=== PATIENT | female | born 1990 | race Hispanic/Latino ===

== ENCOUNTER 2021-09-07 13:58 | Inpatient (IN) | payer BC ==
[2021-09-07] MEDS ORDERED: HYDROcodone/Acetaminophen 5/325 mg Tablet PO PRN ×2 (14:52)
[2021-09-07] MEDS ORDERED: Misoprostol 200 MCG TAB PR PRN (14:52)
[2021-09-07] MEDS ORDERED: Butorphanol Tartrate 1 MG/ML VIAL SLOW IVP PRN (14:52)
[2021-09-07] MEDS ORDERED: Promethazine HCl 25 MG/ML VIAL IM PRN (14:52)
[2021-09-07] MEDS ORDERED: Lidocaine 1% (PF) 30 ML VIAL SC PRN (14:52)
[2021-09-07] MEDS ORDERED: hydrALAZINE 20 MG/ML VIAL SLOW IVP PRN ×2 (14:52→17:31)
[2021-09-07] MEDS ORDERED: Carboprost 250 MCG/ML AMP IM PRN (14:52)
[2021-09-07] MEDS ORDERED: Ondansetron PF 4 MG/2 ML Vial IVP PRN (14:52)
[2021-09-07] MEDS ORDERED: Ibuprofen 800 MG TAB PO PRN (14:52)
[2021-09-07] MEDS ORDERED: NS w/ Oxytocin 30 units 500 ML ONE (14:55)
[2021-09-07] MEDS ORDERED: NS w/ Oxytocin 30 units 500 ML IV SCH ×2 (15:00)
[2021-09-07 15:32] LABS: Mean Corpuscular HGB CONC 34.5 g/dL (32.0-36.0); Mean Corpuscular Hemoglobin 30.4 pg (27.0-33.0); Mean Corpuscular Volume 88.1 fl (81.6-98.3); Platelet Count 191 10x3/uL (150-450); RBC Distribution Width 14.6 % (11.5-14.5); Red Blood Cell (RBC) Count 3.95 10x6/uL (3.90-5.03); White Blood Cell (WBC) Count 9.2 10x3/uL (3.5-10.5)
[2021-09-07 15:49] LABS: ALT (SGPT) 36 U/L (8-55); AST (SGOT) 30 U/L (5-34); Albumin 3.1 g/dL (3.5-5.0); Alkaline Phosphatase 176 U/L (40-110); Anion Gap 12 mmol/L (10-20); BUN (Urea Nitrogen) 11 mg/dL (7.0-18.7); Bilirubin, Total 0.3 mg/dL (0.2-1.2); Calc. Creatinine Clearance 0 mL/min (70-130); Calcium 8.7 mg/dL (7.8-10.44); Carbon Dioxide 22 mmol/L (22-29); Chloride 112 mmol/L (98-107); Estimated GFR 113; Globulin 2.5 g/dL (2.4-3.5); Glucose 94 mg/dL (70-105); Potassium 4.1 mmol/L (3.5-5.1); Protein, Total 5.6 g/dL (6.0-8.3); Sodium 142 mmol/L (136-145)
[2021-09-07 16:17] LABS: Hep B Surf Ag Non-Reactive S/CO (NonReactive); Syphilis Antibody Nonreactive (Nonreactive); Syphilis Antibody Index 0.02 S/CO (<1.00 Non-Reactive)
[2021-09-07 16:48] LABS: HBSAg Index 0.19 S/CO (0-0.99)
[2021-09-07] MEDS ORDERED: hydrALAZINE 20 MG/ML VIAL ONE (17:01)
[2021-09-07 17:07] VITALS: BMI 39.9
[2021-09-07] MEDS ORDERED: Magnesium Sulfate 20 gm/500 ml 20 GM/500 ML BAG ONE (17:26)
[2021-09-07] MEDS ORDERED: Labetalol HCl 100 MG/20 ML VIAL SLOW IVP PRN ×2 (17:31)
[2021-09-07] MEDS ORDERED: Lorazepam 2 MG/ML VIAL SLOW IVP PRN (17:31)
[2021-09-07] MEDS ORDERED: Calcium Gluc 4.6 MEQ/10 ML (100 MG/ML) SLOW IVP PRN (17:31)
[2021-09-07] MEDS: Labetalol HCl 100 MG/20 ML VIAL SLOW IVP PRN (18:41)
[2021-09-07] MEDS: Lactated Ringer's 1,000 ML IV SCH (23:06)
[2021-09-07] MEDS: Acetaminophen 500 MG TAB PO PRN (23:09)
[2021-09-08] MEDS: Magnesium Sulfate 20 gm/500 ml 20 GM/500 ML BAG IVPB SCH ×3 (02:23→23:17)
[2021-09-08] MEDS: Lactated Ringer's 1,000 ML IV SCH (06:57)
[2021-09-08] MEDS: Acetaminophen 500 MG TAB PO PRN ×3 (07:07→19:38)
[2021-09-08] MEDS ORDERED: Labetalol HCl 100 MG/20 ML VIAL SLOW IVP PRN ×5 (09:09→19:39)
[2021-09-08] MEDS: Calcium Carbonate 500 MG ChewTAB PO SCH (13:34)
[2021-09-08] MEDS: Labetalol HCl 100 MG/20 ML VIAL SLOW IVP PRN (16:27)
[2021-09-08] MEDS ORDERED: NIFEdipine XL 30 MG TAB PO SCH (20:00)
[2021-09-08] MEDS ORDERED: Fentanyl 2 mcg/Bup 0.1% Cadd 100 ML ONE (22:12)
[2021-09-08] MEDS ORDERED: Promethazine HCl 25 MG/ML VIAL IM PRN (22:31)
[2021-09-08] MEDS ORDERED: Moisturizing Cream (Eucerin) 113 GM JAR TOP PRN (22:31)
[2021-09-08] MEDS ORDERED: Lactated Ringer's 500 ML IV PRN (22:31)
[2021-09-08] MEDS ORDERED: Ondansetron PF 4 MG/2 ML Vial IVP PRN (22:31)
[2021-09-08] MEDS ORDERED: Naloxone HCl 0.4 mg/ml Vial IVP PRN ×2 (22:31)
[2021-09-08] MEDS ORDERED: ePHEDrine Sulfate 50 MG/10 ML VIAL SLOW IVP PRN (22:31)
[2021-09-08] MEDS ORDERED: diphenhydrAMINE 50 MG/ML VIAL IVP PRN (22:31)
[2021-09-08] MEDS ORDERED: Acetaminophen 325 MG TAB PO PRN (22:31)
[2021-09-08] MEDS ORDERED: Communication Order-Pharmacy FS SCH (22:45)
[2021-09-08] MEDS ORDERED: Fentanyl 2 mcg/Bupivacaine 0.1% Cassette 100 ML EPIDURAL SCH (22:45)
[2021-09-09] MEDS ORDERED: Misoprostol 200 MCG TAB ONE (00:27)
[2021-09-09] MEDS ORDERED: Carboprost 250 MCG/ML AMP ONE (00:27)
[2021-09-09] MEDS ORDERED: Tranexamic Acid 1,000 MG/10 ML VIAL ONE (00:27)
[2021-09-09] MEDS ORDERED: Milk Of Magnesia 30 ML UDCUP PO PRN (01:04)
[2021-09-09] MEDS ORDERED: Calcium Gluc 4.6 MEQ/10 ML (100 MG/ML) SLOW IVP PRN (01:04)
[2021-09-09] MEDS ORDERED: hydrALAZINE 20 MG/ML VIAL SLOW IVP PRN (01:04)
[2021-09-09] MEDS ORDERED: Ondansetron PF 4 MG/2 ML Vial IVP PRN (01:04)
[2021-09-09] MEDS ORDERED: Lorazepam 2 MG/ML VIAL SLOW IVP PRN (01:04)
[2021-09-09] MEDS ORDERED: Bisacodyl 10 MG SUPP PR PRN (01:04)
[2021-09-09] MEDS ORDERED: Boostrix 0.5 ML (Tdap) VIAL IM ONE (01:04)
[2021-09-09 01:11] LABS: pH (Cord, venous) 7.249 (7.250-7.350)
[2021-09-09] MEDS: Ibuprofen 800 MG TAB PO SCH ×2 (04:55→15:51)
[2021-09-09 05:17] LABS: Hemoglobin 11.5 g/dL (12.0-15.5); Mean Corpuscular HGB CONC 33.2 g/dL (32.0-36.0); Mean Corpuscular Hemoglobin 29.5 pg (27.0-33.0); Mean Corpuscular Volume 88.7 fl (81.6-98.3); Mean Platelet Volume 10.9 fl (7.4-10.4); Platelet Count 172 10x3/uL (150-450); RBC Distribution Width 14.8 % (11.5-14.5); White Blood Cell (WBC) Count 23.3 10x3/uL (3.5-10.5)
[2021-09-09 05:51] LABS: ALT (SGPT) 29 U/L (8-55); AST (SGOT) 22 U/L (5-34); Albumin 2.8 g/dL (3.5-5.0); Alkaline Phosphatase 159 U/L (40-110); Anion Gap 12 mmol/L (10-20); BUN (Urea Nitrogen) 9 mg/dL (7.0-18.7); Bilirubin, Total 0.4 mg/dL (0.2-1.2); Calc. Creatinine Clearance 162 mL/min (70-130); Calcium 7.3 mg/dL (7.8-10.44); Carbon Dioxide 19 mmol/L (22-29); Chloride 104 mmol/L (98-107); Estimated GFR 104; Globulin 2.8 g/dL (2.4-3.5); Glucose 142 mg/dL (70-105); Potassium 3.8 mmol/L (3.5-5.1); Protein, Total 5.6 g/dL (6.0-8.3); Sodium 131 mmol/L (136-145)
[2021-09-09 06:26] LABS: MDiff Complete? YES
[2021-09-09 06:27] LABS: Platelet Morphology Comment Appears Adequate
[2021-09-09 06:29] LABS: Band 18 % (5-11); Lymphocytes 5 % (21-51); Monocytes 5 % (0-10); Neutrophil 72 % (42-75)
[2021-09-09] MEDS: Magnesium Sulfate 20 gm/500 ml 20 GM/500 ML BAG IVPB SCH ×2 (09:20→19:26)
[2021-09-09] MEDS: Docusate 100 MG CAP PO SCH (09:23)
[2021-09-09] MEDS: NIFEdipine XL 30 MG TAB PO SCH (09:23)
[2021-09-09] MEDS: Acetaminophen 500 MG TAB PO PRN (13:35)
[2021-09-10] MEDS: Ibuprofen 800 MG TAB PO SCH ×4 (02:15→21:39)
[2021-09-10] MEDS: Lactated Ringer's 1,000 ML IV SCH ×5 (02:15→21:53)
[2021-09-10] MEDS: Ferrous Sulfate 325 MG TAB PO SCH ×3 (02:15→17:27)
[2021-09-10] MEDS: Calcium Carbonate 500 MG ChewTAB PO SCH ×2 (02:15→13:40)
[2021-09-10] MEDS: Docusate 100 MG CAP PO SCH ×3 (02:16→21:39)
[2021-09-10] MEDS: NIFEdipine XL 30 MG TAB PO SCH (08:04)
[2021-09-11] MEDS: Ibuprofen 800 MG TAB PO SCH ×2 (06:02→13:08)
[2021-09-11] MEDS: Lactated Ringer's 1,000 ML IV SCH (07:35)
[2021-09-11] MEDS: Ferrous Sulfate 325 MG TAB PO SCH (07:36)
[2021-09-11] MEDS: NIFEdipine XL 30 MG TAB PO SCH (08:27)
[2021-09-11] MEDS: Docusate 100 MG CAP PO SCH (08:27)
[2021-09-11 10:50] VITALS: BP 139/81; TEMP 98.7
[2021-09-11] MEDS: Calcium Carbonate 500 MG ChewTAB PO SCH (13:42)
== END 2021-09-11 14:00 | disposition home or self-care (01) | DRG 805 ==
LOC: CSHLD 13:58 → CSHPP 09-10 02:10
PROVIDERS: ADMIT Obstetrics & Gynecology; ATTEND Obstetrics & Gynecology
PROC: 10907ZC Drainage of Amniotic Fluid, Therapeutic from Products of Conception, Via Natural or Artificial Opening (ICD-10-PCS; principal; 2021-09-08)
PROC: 3E033VJ Introduction of Other Hormone into Peripheral Vein, Percutaneous Approach (ICD-10-PCS; 2021-09-08)
PROC: 10H07YZ Insertion of Other Device into Products of Conception, Via Natural or Artificial Opening (ICD-10-PCS; 2021-09-08)
PROC: 10E0XZZ Delivery of Products of Conception, External Approach (ICD-10-PCS; 2021-09-09)
DX: O14.14 Severe pre-eclampsia complicating childbirth (principal); O41.1230 Chorioamnionitis, third trimester, not applicable or unspecified; Z37.0 Single live birth; Z3A.40 40 weeks gestation of pregnancy; Z20.822 Contact with and (suspected) exposure to COVID-19; O76 Abnormality in fetal heart rate and rhythm complicating labor and delivery
CPT/HCPCS: 36415; 51702; 80053; 82570; 82805; 84156; 85025; 85027; 86780; 86850; 86900; 86901; 87340; 88307; J0360; J0595; J2405; J2590; J3475; J7120